=== PATIENT | male | born 1935 | race American Indian/Alaskan Native ===

== ENCOUNTER 2018-04-14 11:36 | Emergency (ER) | payer MEDICARE, BC ==
[~2018-04-14] VITALS: Ht 177.8 cm; Wt 76.8 kg
[~2018-04-14 11:36] MED LIST: ADV50250 IH; CARV3.12 PO; CHOL200026 PO; ESCI10TA54 PO; FLO0.4C PO; FURO-150 PO; GUAI1TBM19 PO; LISI10TA4 PO; PROP10DR5 OP; VITA-268 PO
[2018-04-14] MEDS ORDERED: normal saline 1000ML IV soln IVB ONE (12:10)
[2018-04-14 12:29] LABS: BASOPHILS # (AUTO) 0.1 X10'3 (0-0.2); BASOPHILS % (AUTO) 0.8 % (0-1); EOSINOPHILS # (AUTO) 0.2 X10'3 (0-0.9); EOSINOPHILS % (AUTO) 2.5 % (0-6); HEMATOCRIT 43.4 % (42.0-52.0); HEMOGLOBIN 14.3 g/dl (14.0-17.9); LYMPHOCYTES # (AUTO) 1.3 X10'3 (1.1-4.8); LYMPHOCYTES % (AUTO) 18.2 % (21-51); MEAN CORPUSCULAR HEMOGLOBIN 31.1 PG (27.0-31.0); MEAN CORPUSCULAR HGB CONC 32.9 % (33.0-36.5); MEAN CORPUSCULAR VOLUME 94.7 FL (78-98); MEAN PLATELET VOLUME 9.1 FL (7.4-10.4); MONOCYTES # (AUTO) 0.7 X10'3 (0-0.9); MONOCYTES % (AUTO) 10.3 % (2-12); NEUTROPHILS # (AUTO) 4.9 X10'3 (1.8-7.7); NEUTROPHILS % (AUTO) 68.2 % (42-75); PLATELET COUNT 183 X10'3 (140-440); RED BLOOD COUNT 4.58 X10'6 (4.70-6.10); RED CELL DISTRIBUTION WIDTH 15.4 % (11.5-14.5); WHITE BLOOD COUNT 7.2 X10'3 (4.5-11.0)
[2018-04-14 12:41] LABS: ALANINE AMINOTRANSFERASE 27 U/L (12-78); ALBUMIN 3.5 G/DL (3.4-5.0); ALBUMIN/GLOBULIN RATIO 0.9 (1.1-1.5); ALKALINE PHOSPHATASE 118 IU/L (46-116); ANION GAP 12 (8-16); ASPARTATE AMINO TRANSFERASE 25 U/L (10-37); BILIRUBIN,TOTAL 0.7 MG/DL (0.1-1.0); BLOOD UREA NITROGEN 23 MG/DL (7-18); BUN/CREATININE RATIO 21.9 (5.4-32.0); CALCIUM 8.7 MG/DL (8.5-10.1); CHLORIDE 105 MMOL/L (99-107); CREATININE 1.05 MG/DL (0.60-1.10); GLUCOSE 74 MG/DL (70-104); LIPASE 127 U/L (73-393); POTASSIUM 4.5 MMOL/L (3.5-5.1); SODIUM 139 MMOL/L (135-145); TOTAL CARBON DIOXIDE 22.5 MMOL/L (24-32); TOTAL PROTEIN 7.2 G/DL (6.4-8.2); eGFR 68 ML/MIN
[2018-04-14 13:31] LABS: CLARITY,URINE CLEAR (Clear); COLOR,URINE YELLOW (Yellow); GLUCOSE, URINE NEGATIVE (Neg); KETONES,URINE TRACE mg/dl (Neg); LEUKOCYTE ESTERASE ,URINE NEGATIVE (Neg); NITRITES, URINE NEGATIVE (Neg); OCCULT BLOOD,URINE NEGATIVE (Neg); PH,URINE 5.5 (4.8-8.0); PROTEIN,URINE NEGATIVE (Neg); UROBILINOGEN,URINE 0.2 E.U/dL (0.2-1.0)
[2018-04-14 13:33] LABS: UA COLLECTION TYPE CLN CATCH MIDSTREAM
[2018-04-14 14:35] VITALS: BP 138/76
== END 2018-04-14 14:35 | disposition home or self-care (01) ==
LOC: ER 11:37
DX: R19.7 Diarrhea, unspecified (principal); F03.90 Unspecified dementia, unspecified severity, without behavioral disturbance, psychotic disturbance, mood disturbance, and anxiety; I48.91 Unspecified atrial fibrillation; R42 Dizziness and giddiness; I11.0 Hypertensive heart disease with heart failure; I50.9 Heart failure, unspecified; J44.9 Chronic obstructive pulmonary disease, unspecified; Z79.899 Other long term (current) drug therapy; Z88.8 Allergy status to other drugs, medicaments and biological substances
CPT/HCPCS: 36415; 80053; 81003; 83690; 85025; 93005; 96360; 99285

== ENCOUNTER 2018-10-20 14:31 | Observation (INO) | payer MEDICARE, BC ==
[~2018-10-20] VITALS: Ht 180.3 cm; Wt 85.3 kg
[~2018-10-20 14:31] MED LIST changes: +CARV-50 PO; +CHOL2000 PO; +FLUT1DIS4 INH; +FURO-149 PO; +LISI40TA4 PO; +MAGN400C PO; +POTA10TA36 PO; +PROP1DRO7 OP; +VITA1CAP PO
[2018-10-20] MEDS ORDERED: nitroGLYCERIN 1gm ointment UD TP ONE (14:45)
[2018-10-20] MEDS ORDERED: aspirin 81mg tab.chew PO ONE (14:45)
[2018-10-20 14:58] LABS: BASOPHILS # (AUTO) 0.1 X10'3 (0-0.2); BASOPHILS % (AUTO) 0.7 % (0-1); EOSINOPHILS # (AUTO) 0.1 X10'3 (0-0.9); EOSINOPHILS % (AUTO) 1.4 % (0-6); HEMATOCRIT 41.6 % (42.0-52.0); HEMOGLOBIN 14.1 g/dl (14.0-17.9); LYMPHOCYTES % (AUTO) 11.2 % (21-51); MEAN CORPUSCULAR HEMOGLOBIN 32.1 PG (27.0-31.0); MEAN CORPUSCULAR HGB CONC 33.8 g/dL (33.0-36.5); MEAN CORPUSCULAR VOLUME 95.2 FL (78-98); MEAN PLATELET VOLUME 9.8 FL (7.4-10.4); MONOCYTES # (AUTO) 0.8 X10'3 (0-0.9); MONOCYTES % (AUTO) 8.6 % (2-12); NEUTROPHILS # (AUTO) 6.9 X10'3 (1.8-7.7); NEUTROPHILS % (AUTO) 78.1 % (42-75); PLATELET COUNT 129 X10'3 (140-440); RED BLOOD COUNT 4.37 X10'6 (4.70-6.10); RED CELL DISTRIBUTION WIDTH 14.5 % (11.5-14.5); WHITE BLOOD COUNT 8.9 X10'3 (4.5-11.0)
[2018-10-20 15:19] LABS: INR 1.2 INR; PARTIAL THROMBOPLASTIN TIME 32 SECONDS (22-32)
[2018-10-20 15:24] LABS: ALANINE AMINOTRANSFERASE 33 U/L (12-78); ALBUMIN 3.5 G/DL (3.4-5.0); ALKALINE PHOSPHATASE 103 IU/L (46-116); ANION GAP 6 (8-16); ASPARTATE AMINO TRANSFERASE 28 U/L (10-37); BILIRUBIN,TOTAL 0.9 MG/DL (0.1-1.0); BLOOD UREA NITROGEN 29 MG/DL (7-18); BUN/CREATININE RATIO 25.4 (5.4-32.0); CALCIUM 8.8 MG/DL (8.5-10.1); CHLORIDE 105 MMOL/L (99-107); CREATININE 1.14 MG/DL (0.60-1.10); GLUCOSE 99 MG/DL (70-104); POTASSIUM 4.1 MMOL/L (3.5-5.1); SODIUM 138 MMOL/L (135-145); TOTAL CARBON DIOXIDE 26.7 MMOL/L (24-32); TOTAL PROTEIN 6.9 G/DL (6.4-8.2); eGFR 61 ML/MIN
[2018-10-20] MEDS ORDERED: normal saline 1000ml 1,000 ML IV SCH (16:06)
[2018-10-20] MEDS ORDERED: potassium Cl 20 mEq SR tablet PO PRN ×2 (16:10)
[2018-10-20] MEDS ORDERED: magnesium 4gm in 100ml NS 100 ML IV PRN (16:10)
[2018-10-20] MEDS ORDERED: aminophylline 250mg/10ml inj. IV PRN (16:10)
[2018-10-20] MEDS ORDERED: HYDROcodone/acetaminophen 10/325mg tab PO PRN (16:10)
[2018-10-20] MEDS ORDERED: regadenoson 0.4mg/5ml syringe IV ONE (16:10)
[2018-10-20] MEDS ORDERED: magnesium 2GM in 50ml NS 50 ML IV PRN (16:10)
[2018-10-20] MEDS ORDERED: potassium Cl 40MEQ/NS 500ml 500 ML IV PRN ×2 (16:10)
[2018-10-20] MEDS ORDERED: HYDROcodone/acetaminophen 5mg/325mg tablet PO PRN (16:10)
[2018-10-20] MEDS ORDERED: nitroGLYCERIN 0.4mg SUBLingual tab SL PRN ×2 (16:10)
[2018-10-20] MEDS ORDERED: mag hydrox/Alum hydrox/simeth 30ml oral suspension PO PRN (16:10)
[2018-10-20] MEDS ORDERED: metoprolol tartrate 1mg/ml inj IV PRN (16:10)
[2018-10-20] MEDS ORDERED: morphine 2 MG/ML inj. syringe IV PRN ×2 (16:10)
[2018-10-20] MEDS ORDERED: magnesium Cl slow-release 64mg tablet PO PRN (16:10)
[2018-10-20] MEDS ORDERED: ondansetron/PF 4mg/2ml inj IV PRN (16:10)
[2018-10-20] MEDS ORDERED: acetaminophen 325mg tablet PO PRN ×2 (16:10)
[2018-10-20] MEDS ORDERED: magnesium hydroxide 30ml (MOM) UD suspension PO PRN (16:10)
[2018-10-20] MEDS ORDERED: CHOL10002 PO (16:19)
[2018-10-20] MEDS ORDERED: VITA-268 PO (16:19)
[2018-10-20] MEDS ORDERED: FURO-150 PO (16:19)
[2018-10-20] MEDS ORDERED: ROSU5TAB PO (16:19)
[2018-10-20] MEDS ORDERED: FLO0.4C PO (16:19)
[2018-10-20] MEDS ORDERED: FLUT1DIS4 INH (16:19)
[2018-10-20] MEDS ORDERED: LISI-600 PO (16:19)
[2018-10-20 17:23] LABS: PHOSPHORUS 3.5 MG/DL (2.3-4.5)
[2018-10-20 17:28] LABS: HEMOGLOBIN A1C 5.3 % (4.5-6.2)
[2018-10-20 19:00] VITALS: BP 128/82
--- NOTE | 2018-10-20 19:23 | NUR ---
Patient in room PCU 3021U. I have received report from TOBY ALTMAN and had the opportunity to ask questions and assume patient care. PATIENT ARRIVED TO PCU AT 1810. STABLE, A&O X4 WITH FAMILY AT BEDSIDE. 18G FIELD START IN L AC AND SL. WILL CONTINUE TO MONITOR CLOSELY.
[2018-10-20] MEDS ORDERED: non-formulary drug (Fluticasone/Salmeterol (Advair 250-50 Diskus) 1 PUFFS) INH SCH (20:00)
[2018-10-20] MEDS: BUDESONIDE 0.25 MG/2 ML AMPUL.NEB IH SCH (20:33)
[2018-10-20] MEDS: albuterol 2.5 MG/3 ML nebule NEB SCH (20:33)
--- NOTE | 2018-10-20 20:35 | NUR ---
PATIENT'S BLOOD PRESSURE AT 2035 92/63 WITH HR OF 91. CARVEDILOL 3.125 mg PO HELD PER PROTOCOL.
[2018-10-20] MEDS: atorvastatin 20mg tablet PO SCH (20:47)
[2018-10-20] MEDS: tamsulosin 0.4mg capsule PO SCH (20:48)
[2018-10-20] MEDS ORDERED: ROSUVASTATIN CALCIUM PO SCH (21:00)
--- NOTE | 2018-10-20 22:01 | NUR ---
Spoke with Dr Borden regarding order for IV fluids on patient, PBNP 4181, echo in 2017 showed EF 20-30%. Patient complaining of chest congestion, Dr Borden ordered IVF to be stopped at this time, will continue to monitor closely.
[2018-10-20 23:00] VITALS: BP 128/61
[2018-10-20] MEDS: temazepam 15mg capsule PO PRN (23:33)
[2018-10-21] VITALS (14 sets, daily range): BP systolic 93–149; BP diastolic 54–83
[2018-10-21 02:51] LABS: HEMATOCRIT 38.2 % (42.0-52.0); HEMOGLOBIN 13.3 g/dl (14.0-17.9); MEAN CORPUSCULAR HEMOGLOBIN 32.8 PG (27.0-31.0); MEAN CORPUSCULAR HGB CONC 34.9 g/dL (33.0-36.5); MEAN PLATELET VOLUME 9.3 FL (7.4-10.4); PLATELET COUNT 117 X10'3 (140-440); RED BLOOD COUNT 4.07 X10'6 (4.70-6.10); RED CELL DISTRIBUTION WIDTH 14.5 % (11.5-14.5); WHITE BLOOD COUNT 7.5 X10'3 (4.5-11.0)
[2018-10-21 03:04] LABS: ALBUMIN 3.3 G/DL (3.4-5.0); ANION GAP 8 (8-16); BLOOD UREA NITROGEN 25 MG/DL (7-18); BUN/CREATININE RATIO 22.7 (5.4-32.0); CALCIUM 8.8 MG/DL (8.5-10.1); CHLORIDE 102 MMOL/L (99-107); CHOL/HDL RATIO 2.5 (0.00-4.99); CHOLESTEROL 114 MG/DL (0-200); GLUCOSE 101 MG/DL (70-104); HDL CHOLESTEROL 46 MG/DL (35-60); LDL CHOLESTEROL 62 MG/DL (50-100); MAGNESIUM 1.9 MG/DL (1.5-2.4); PHOSPHORUS 3.4 MG/DL (2.3-4.5); POTASSIUM 4.3 MMOL/L (3.5-5.1); SODIUM 137 MMOL/L (135-145); TRIGLYCERIDES 30 MG/DL (20-135); eGFR 64 ML/MIN
--- NOTE | 2018-10-21 06:21 | NUR ---
[place] documentation: I have reviewed and agree with all interventions, assessments performed and documented by Jamaal LUIS. [place] Medication Administration: For this medication-pass time frame, all medication were reviewed, dispensed, administered and documented per hospital policy by Jamaal LUIS.
--- NOTE | 2018-10-21 06:34 | NUR ---
Patient in room PCU 3022. I have received report from Nanci LUIS and Jamaal LUIS and had the opportunity to ask questions and assume patient care.
[2018-10-21] MEDS: K and/or MAG REPLACEMENT MC SCH (08:00)
[2018-10-21] MEDS: enoxaparin 40mg/0.4ml syringe SQ SCH (08:00)
[2018-10-21] MEDS: aspirin 81mg tablet.DR PO SCH (08:00)
[2018-10-21] MEDS: furosemide 20MG tablet PO SCH (08:15)
[2018-10-21] MEDS: albuterol 2.5 MG/3 ML nebule NEB SCH ×4 (08:15→19:21)
[2018-10-21] MEDS: BUDESONIDE 0.25 MG/2 ML AMPUL.NEB IH SCH ×2 (08:16→19:22)
[2018-10-21] MEDS ORDERED: aminophylline inj. 10 ML IV ONE (09:58)
[2018-10-21] MEDS ORDERED: regadenoson 0.4mg/5ml syringe IV ONE (09:59)
--- NOTE | 2018-10-21 18:30 | NUR ---
Problems reprioritized. Patient report given, questions answered & plan of care reviewed with Cameron LUIS.
--- NOTE | 2018-10-21 18:32 | NUR ---
Patient in room PCU 3022. I have received report from TOBY PICHARDO and had the opportunity to ask questions and assume patient care. PATIENT AWAKE FOR BEDSIDE REPORT. 20G L FA SL. FAMILY AT BEDSIDE AND STABLE AT THIS TIME. WILL CONTINUE TO MONITOR CLOSELY.
[2018-10-21] MEDS: atorvastatin 20mg tablet PO SCH (20:18)
[2018-10-21] MEDS: tamsulosin 0.4mg capsule PO SCH (20:18)
[2018-10-21] MEDS ORDERED: methylPREDNISolone sod succ 125mg/2ml vial IV ONE (20:25)
[2018-10-21] MEDS: temazepam 15mg capsule PO PRN (21:50)
[2018-10-22] MEDS: methylPREDNISolone sod succ/PF 40mg inj. IV SCH ×3 (02:18→13:58)
[2018-10-22 03:00] VITALS: BP 129/85
[2018-10-22 06:00] VITALS: BP 134/86
--- NOTE | 2018-10-22 06:21 | NUR ---
Problems reprioritized. Patient report given, questions answered & plan of care reviewed with TOBY Matthews.
[2018-10-22 06:22] LABS: HEMATOCRIT 46.2 % (42.0-52.0); HEMOGLOBIN 15.6 g/dl (14.0-17.9); MEAN CORPUSCULAR HGB CONC 33.8 g/dL (33.0-36.5); MEAN CORPUSCULAR VOLUME 94.7 FL (78-98); MEAN PLATELET VOLUME 10.5 FL (7.4-10.4); PLATELET COUNT 132 X10'3 (140-440); RED BLOOD COUNT 4.88 X10'6 (4.70-6.10); RED CELL DISTRIBUTION WIDTH 14.5 % (11.5-14.5); WHITE BLOOD COUNT 5.1 X10'3 (4.5-11.0)
[2018-10-22 06:35] LABS: ALBUMIN 3.7 G/DL (3.4-5.0); ANION GAP 9 (8-16); BLOOD UREA NITROGEN 23 MG/DL (7-18); BUN/CREATININE RATIO 18.9 (5.4-32.0); CALCIUM 9.7 MG/DL (8.5-10.1); CHLORIDE 102 MMOL/L (99-107); CREATININE 1.22 MG/DL (0.60-1.10); GLUCOSE 163 MG/DL (70-104); MAGNESIUM 2.2 MG/DL (1.5-2.4); PHOSPHORUS 3.4 MG/DL (2.3-4.5); SODIUM 138 MMOL/L (135-145); TOTAL CARBON DIOXIDE 27.4 MMOL/L (24-32); eGFR 57 ML/MIN
--- NOTE | 2018-10-22 06:42 | NUR ---
Patient in room PCU 3022. I have received report from TOBY Hinton and had the opportunity to ask questions and assume patient care.
[2018-10-22] MEDS: albuterol 2.5 MG/3 ML nebule NEB SCH (07:00)
[2018-10-22] MEDS: ipratropium/albuterol 3ml nebule NEB SCH ×3 (07:00→11:00)
[2018-10-22] MEDS: K and/or MAG REPLACEMENT MC SCH (08:00)
[2018-10-22] MEDS: furosemide 20MG tablet PO SCH (08:17)
[2018-10-22] MEDS: aspirin 81mg tablet.DR PO SCH (08:17)
[2018-10-22] MEDS: enoxaparin 40mg/0.4ml syringe SQ SCH (08:18)
[2018-10-22] MEDS: BUDESONIDE 0.25 MG/2 ML AMPUL.NEB IH SCH (08:31)
[2018-10-22 11:00] VITALS: BP 111/73
[2018-10-22] MEDS ORDERED: PRED10TA PO (12:19)
[2018-10-22] MEDS ORDERED: IPRA3AMP9 NEB (12:22)
--- NOTE | 2018-10-22 12:51 | NUR ---
O2 Sat at rest on room air:_95_% If below 89%: Recovery O2 Sat at rest on ___LPM:___%:___% via (mask/nasal cannula, etc..) No further documentation is necessary. If O2 Sat did not drop below 89% on room air,ambulate patient on room air. O2 Sat while ambulating on room air:_94__% Recovery O2 Sat while ambulating on ___LPM:___% No further documentation is necessary. If patient does not drop below 89% while ambulating, he/she does not qualify for home O2.
--- NOTE | 2018-10-22 13:02 | NUR ---
Patient needs to wait until nebulizer is delivered as per [place]
--- NOTE | 2018-10-22 13:36 | NUR ---
Called Dr Willy Reynolds left a message to call back So I could set up an appointment for the patient.
--- NOTE | 2018-10-22 15:41 | NUR ---
Meds called into [facility].
--- NOTE | 2018-10-22 18:51 | NUR ---
CHF AHA edu, Rehab schedule and echo done. Appnt set up within a week
--- NOTE | 2018-10-22 18:51 | NUR ---
Given DM survival skills
--- NOTE | 2018-10-22 18:52 | NUR ---
IV and tele DC'd. Stable per MD to DC. All Core measure met.
== END 2018-10-22 15:35 | disposition home or self-care (01) ==
LOC: ER 14:31 → PCU 3S 18:19 → CMPBEDREQ 19:31 → PCU 3S 10-21 05:27
PROVIDERS: ADMIT Family Medicine; ATTEND Family Medicine
DX: I25.119 Atherosclerotic heart disease of native coronary artery with unspecified angina pectoris (principal); I11.0 Hypertensive heart disease with heart failure; I50.20 Unspecified systolic (congestive) heart failure; I42.9 Cardiomyopathy, unspecified; J44.9 Chronic obstructive pulmonary disease, unspecified; E78.5 Hyperlipidemia, unspecified; G47.33 Obstructive sleep apnea (adult) (pediatric); F03.90 Unspecified dementia, unspecified severity, without behavioral disturbance, psychotic disturbance, mood disturbance, and anxiety; I48.91 Unspecified atrial fibrillation; Z87.891 Personal history of nicotine dependence; Z95.5 Presence of coronary angioplasty implant and graft; Z88.8 Allergy status to other drugs, medicaments and biological substances
CPT/HCPCS: 36415; 71045; 78452; 80048; 80053; 80061; 83036; 83735; 83880; 84100; 84484; 85025; 85027; 85610; 85730; 87070; 93005; 93017; 93306; 94640; 94760; 96372; 96374; 96376; 99284; A9500; G0378; J0280; J2920; J2930; 96375; J1650; J7030

== ENCOUNTER 2020-04-30 18:00 | Emergency (ER) | payer MEDICARE, BC ==
[~2020-04-30] VITALS: Ht 180.3 cm; Wt 81.8 kg
[~2020-04-30 18:00] MED LIST changes: -ADV50250 IH; -CARV-50 PO; -CARV3.12 PO; +CHOL10002 PO; -CHOL2000 PO; -CHOL200026 PO; -ESCI10TA54 PO; -FURO-149 PO; -GUAI1TBM19 PO; +IPRA3AMP9 NEB; +LISI-600 PO; -LISI10TA4 PO; -LISI40TA4 PO; -MAGN400C PO; -POTA10TA36 PO; +PRED10TA PO; -PROP10DR5 OP; -PROP1DRO7 OP; +ROSU5TAB PO; -VITA1CAP PO
[2020-04-30 18:39] LABS: BASOPHILS # (AUTO) 0.1 X10'3 (0-0.2); BASOPHILS % (AUTO) 1.3 % (0-1); EOSINOPHILS # (AUTO) 0.2 X10'3 (0-0.9); HEMATOCRIT 41.2 % (42.0-52.0); HEMOGLOBIN 13.6 g/dl (14.0-17.9); LYMPHOCYTES # (AUTO) 1.2 X10'3 (1.1-4.8); LYMPHOCYTES % (AUTO) 23.1 % (21-51); MEAN CORPUSCULAR HEMOGLOBIN 30.5 PG (27.0-31.0); MEAN CORPUSCULAR VOLUME 92.3 FL (78-98); MEAN PLATELET VOLUME 10.5 FL (7.4-10.4); MONOCYTES # (AUTO) 0.5 X10'3 (0-0.9); MONOCYTES % (AUTO) 9.6 % (2-12); NEUTROPHILS # (AUTO) 3.1 X10'3 (1.8-7.7); PLATELET COUNT 115 X10'3 (140-440); RED BLOOD COUNT 4.46 X10'6 (4.70-6.10); RED CELL DISTRIBUTION WIDTH 16.5 % (11.5-14.5); WHITE BLOOD COUNT 5.1 X10'3 (4.5-11.0)
[2020-04-30 18:47] LABS: ALANINE AMINOTRANSFERASE 21 U/L (12-78); ALBUMIN 3.8 G/DL (3.4-5.0); ALBUMIN/GLOBULIN RATIO 1.1 (1.1-1.5); ALKALINE PHOSPHATASE 155 IU/L (46-116); ANION GAP 10 (8-16); ASPARTATE AMINO TRANSFERASE 30 U/L (10-37); BILIRUBIN,TOTAL 1.2 MG/DL (0.1-1.0); BLOOD UREA NITROGEN 34 MG/DL (7-18); BUN/CREATININE RATIO 25.8 (5.4-32.0); CALCIUM 8.8 MG/DL (8.5-10.1); CHLORIDE 103 MMOL/L (99-107); CREATININE 1.32 MG/DL (0.60-1.10); GLUCOSE 74 MG/DL (70-104); POTASSIUM 4.4 MMOL/L (3.5-5.1); SODIUM 138 MMOL/L (135-145); TOTAL CARBON DIOXIDE 25.2 MMOL/L (24-32); TOTAL PROTEIN 7.4 G/DL (6.4-8.2); eGFR 52 ML/MIN
[2020-04-30] MEDS ORDERED: furosemide 10 MG/1 ML 10ml inj IV ONE (19:10)
[2020-04-30 19:33] VITALS: BP 146/94
[2020-04-30 21:57] LABS: LARGE PLATELETS MODERATE; PLATELET ESTIMATE DECREASED
== END 2020-04-30 19:34 | disposition home or self-care (01) ==
LOC: ER 18:00
DX: I50.9 Heart failure, unspecified (principal); I11.0 Hypertensive heart disease with heart failure; F03.90 Unspecified dementia, unspecified severity, without behavioral disturbance, psychotic disturbance, mood disturbance, and anxiety; I48.91 Unspecified atrial fibrillation; I25.10 Atherosclerotic heart disease of native coronary artery without angina pectoris; J44.9 Chronic obstructive pulmonary disease, unspecified; G47.30 Sleep apnea, unspecified; Z95.0 Presence of cardiac pacemaker; Z88.8 Allergy status to other drugs, medicaments and biological substances; Z79.899 Other long term (current) drug therapy
CPT/HCPCS: 36415; 71045; 80053; 83880; 84484; 85025; 87635; 96374; 99285; J1940; 93005

== ENCOUNTER 2022-03-26 14:21 | Emergency (ER) | payer MEDICARE, BC ==
[~2022-03-26] VITALS: Ht 177.8 cm; Wt 94.5 kg
[~2022-03-26 14:21] MED LIST changes: -CHOL10002 PO; +CHOL50004 PO; +FINA5TAB11 PO; -FLUT1DIS4 INH; -IPRA3AMP9 NEB; +LATA2.5D14 LEFTEYE; -LISI-600 PO; +LOSA100T57; -PRED10TA PO; -ROSU5TAB PO; +SPIR25TA5; +UMEC1DIS INH; -VITA-268 PO
[2022-03-26 14:45] VITALS: BP 122/60
== END 2022-03-26 16:41 | disposition home or self-care (01) ==
LOC: ER 14:21
DX: M25.562 Pain in left knee (principal); F03.90 Unspecified dementia, unspecified severity, without behavioral disturbance, psychotic disturbance, mood disturbance, and anxiety; I11.9 Hypertensive heart disease without heart failure; J44.9 Chronic obstructive pulmonary disease, unspecified; Z88.8 Allergy status to other drugs, medicaments and biological substances; Z88.5 Allergy status to narcotic agent; W19.XXXA Unspecified fall, initial encounter; Y93.89 Activity, other specified; Y92.89 Other specified places as the place of occurrence of the external cause; Y99.8 Other external cause status
CPT/HCPCS: 73560; 99284

== ENCOUNTER 2024-01-24 17:01 | Emergency (ER) | payer MEDICARE, BC ==
[~2024-01-24] VITALS: Ht 172.7 cm; Wt 84.8 kg
[~2024-01-24 17:01] MED LIST changes: -LOSA100T57; +LOSA100T58
[2024-01-24 19:38] LABS: BASOPHILS # (AUTO) 0.1 X10'3 (0-0.2); BASOPHILS % (AUTO) 0.8 % (0-1); EOSINOPHILS # (AUTO) 0.3 X10'3 (0-0.9); HEMATOCRIT 43.8 % (42.0-52.0); HEMOGLOBIN 14.4 g/dl (14.0-17.9); LYMPHOCYTES # (AUTO) 1.2 X10'3 (1.1-4.8); LYMPHOCYTES % (AUTO) 16.9 % (21-51); MEAN CORPUSCULAR HEMOGLOBIN 30.9 PG (27.0-31.0); MEAN CORPUSCULAR HGB CONC 32.9 g/dL (33.0-36.5); MEAN CORPUSCULAR VOLUME 93.8 FL (78-98); MEAN PLATELET VOLUME 9.9 FL (7.4-10.4); MONOCYTES # (AUTO) 0.6 X10'3 (0-0.9); MONOCYTES % (AUTO) 8.6 % (2-12); NEUTROPHILS % (AUTO) 69.7 % (42-75); PLATELET COUNT 155 X10'3 (140-440); RED BLOOD COUNT 4.67 X10'6 (4.70-6.10); RED CELL DISTRIBUTION WIDTH 14.1 % (11.5-14.5); WHITE BLOOD COUNT 7.1 X10'3 (4.5-11.0)
[2024-01-24 19:50] LABS: APTT 28 SECONDS (22-32); INR 1.1 INR; PROTHROMBIN TIME 11.5 SECONDS (9.0-12.0)
[2024-01-24 19:54] LABS: ALANINE AMINOTRANSFERASE 41 U/L (12-78); ALBUMIN 4.2 G/DL (3.4-5.0); ALBUMIN/GLOBULIN RATIO 1.2 (1.1-1.5); ALKALINE PHOSPHATASE 124 IU/L (46-116); ANION GAP 7 (8-16); ASPARTATE AMINO TRANSFERASE 22 U/L (10-37); BILIRUBIN,TOTAL 0.9 MG/DL (0.1-1.0); BLOOD UREA NITROGEN 29 MG/DL (7-18); BUN/CREATININE RATIO 23.2 (10.0-20.0); C-REACTIVE PROTEIN 0.19 MG/DL (0.0-0.5); CALCIUM 9.4 MG/DL (8.5-10.1); CHLORIDE 104 MMOL/L (99-107); CREATININE 1.25 MG/DL (0.60-1.10); GLUCOSE 105 MG/DL (70-104); POTASSIUM 4.1 MMOL/L (3.5-5.1); SODIUM 138 MMOL/L (135-145); TOTAL CARBON DIOXIDE 27.3 MMOL/L (24-32); TOTAL PROTEIN 7.8 G/DL (6.4-8.2); eCRCL 40 ML/MIN; eGFR 55 ML/MIN
[2024-01-24 20:48] VITALS: BP 165/72; PULSE 100; RESP 17; TEMP 98.3; O2SAT 99
== END 2024-01-24 20:50 | disposition home or self-care (01) ==
LOC: ER 17:02
DX: S50.11XA Contusion of right forearm, initial encounter (principal); I48.91 Unspecified atrial fibrillation; I25.10 Atherosclerotic heart disease of native coronary artery without angina pectoris; I11.0 Hypertensive heart disease with heart failure; I50.9 Heart failure, unspecified; J44.9 Chronic obstructive pulmonary disease, unspecified; Z88.8 Allergy status to other drugs, medicaments and biological substances; Z88.1 Allergy status to other antibiotic agents; Z79.899 Other long term (current) drug therapy; Z87.891 Personal history of nicotine dependence; W57.XXXA Bitten or stung by nonvenomous insect and other nonvenomous arthropods, initial encounter; Y93.89 Activity, other specified; Y92.89 Other specified places as the place of occurrence of the external cause; Y99.8 Other external cause status
CPT/HCPCS: 36415; 73200; 80053; 83605; 84145; 85025; 85610; 85651; 85730; 86140; 87040; 93971; 99284